=== PATIENT | male | born 1990 | race Caucasian/White ===

== ENCOUNTER 2017-10-28 15:36 | Emergency (ER) | payer SELFPAY ==
[~2017-10-28] VITALS: Ht 188 cm; Wt 80.0 kg
[~2017-10-28 15:36] MED LIST: BACT800T5 PO; CEPH500C3 PO
[2017-10-28 15:39] VITALS: BP 118/66; PULSE 86; RESP 12; TEMP 98.4; O2SAT 95
--- NOTE | 2017-10-28 18:10 | PD ---
HPI Chief Complaint: Skin Problem Time Seen by Provider: 17:47 Travel History International Travel<30 days: No Contact w/Intl Traveler<30days: No Traveled to known affect area: No History of Present Illness HPI 27-year-old male presents to the emergency department with complaint of "rectal lesions" 1 month. He says it has gotten bigger. He does not know if it is maybe a hemorrhoid. He denies anal sex or putting anything into his anus. He denies anal trauma. Says he has blood on his toilet paper every now and then, but not a lot. Denies hematochezia. Denies fever, vomiting, abdominal pain. Reports having a rash in his back. He sometimes has pain with pooping. He has no pain at this time. He has not tried any treatments or medications to alleviate his symptoms. No known aggravating factors. No primary care provider. No known allergies. Denies significant past medical history. Has no other medical complaints. No other modifying factors or associated signs and symptoms. 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 HEAD: Atraumatic. Normocephalic. EYES: Pupils equal and round. No scleral icterus. No injection or drainage. ENT: Mucosa pink and moist. Airway patent. NECK: Trachea midline. CARDIOVASCULAR: Regular rate. RESPIRATORY: No accessory muscle use. GASTROINTESTINAL: Flat. RECTAL EXAM: Exam done in the presence of a nurse. Flesh-colored skin tags noted around to the anus; 1 large flesh-colored skin tag noted and is without erythema, edema, drainage; No erythema, edema, drainage; no tenderness on palpation; appear consistent with anal wart; no rash noted. MUSCULOSKELETAL: No obvious deformities. No clubbing. No cyanosis. No edema. NEUROLOGICAL: Awake and alert. Oriented 3. No obvious cranial nerve deficits. Motor grossly within normal limits. Normal speech. PSYCHIATRIC: Appropriate mood and affect; insight and judgment normal. Data Data Last Documented VS Vital Signs Date Time Temp Pulse Resp B/P (MAP) Pulse Ox O2 Delivery O2 Flow Rate FiO2 10/28/17 15:39 98.4 86 12 118/66 (83) 95 Orders Orders Ed Discharge Order (10/28/17 18:10) MDM Medical Decision Making Medical Screen Exam Complete: Yes Emergency Medical Condition: Yes Medical Record Reviewed: Yes Differential Diagnosis Genital warts, skin tags of the anus, anal fissure, hemorrhoid Narrative Course 27-year-old male physical exam consistent with skin tags of the anus that appear to be consistent with anal warts. Patient provided community resources for follow-up. Instructed patient to follow up with primary care provider. Patient verbalizes understanding and agreement with treatment plan. Patient is medically cleared and stable for discharge. Discussed reasons to return to the emergency department. Patient agrees with treatment plan. The patients vital signs are stable and the patient is stable for outpatient follow-up and treatment. Patient discharged home, stable and in no acute distress. Diagnosis Primary Impression: Anal skin tag Referrals: [facility] Primary Care Physician Patient Instructions: General Instructions, Genital Warts (ED) Additional Instructions: Follow-up with [facility] Follow up with primary care provider Return to the emergency department immediately with worsening of symptoms Med/Other Pt SpecificInfo: No Change to Meds, No Meds Exist/No RX given Scripts No Active Prescriptions or Reported Meds Disposition: 01 DISCHARGE HOME Condition: Stable Flores Durán Oct 28, 2017 18:10
[2017-10-28 18:24] VITALS: BP 124/68
== END 2017-10-28 18:25 | disposition home or self-care (01) ==
LOC: NEPD 15:36
DX: K64.4 Residual hemorrhoidal skin tags (principal); F17.210 Nicotine dependence, cigarettes, uncomplicated
CPT/HCPCS: 99281